=== PATIENT | female | born 1960 | race Caucasian/White ===

== ENCOUNTER 2023-06-16 08:55 | Emergency (ER) | payer OTHER, SELFPAY ==
--- NOTE | ~2023-06-16 | XR_ITS ---
EXAMINATION: XR toe 2nd LT min 2V DATE: 06/16/2023 09:31 INDICATION: Left second toe stabbing injury and pain. TECHNIQUE: 4 views of left second toe were obtained. COMPARISON: None. FINDINGS: There is an oblique fracture of neck of second proximal phalanx. The distal fracture fragme nt demonstrates 2 mm dorsal displacement and 1 mm shortening. Joint spaces are normal. IMPRESSION: 1. Oblique fracture of neck of second proximal phalanx. Reviewed, dictated and finalized at location A.
--- NOTE | ~2023-06-16 | XR_ITS ---
EXAMINATION: XR knee RT min 4V DATE: 06/16/2023 09:56 INDICATION: Right knee pain. Injury. TECHNIQUE: 4 views of right knee were obtained. COMPARISON: None. FINDINGS: Bone alignment is normal. No fracture. There is mild osteoarthritis of medial and patellofe moral compartments. No knee joint effusion. IMPRESSION: 1. Mild right knee osteoarthritis. Reviewed, dictated and finalized at location A.
[2023-06-16 09:06] VITALS: BP 130/59; PULSE 73; RESP 18; TEMP 36.3; O2SAT 100
--- NOTE | 2023-06-16 09:35 | ED.LOWEXIN ---
HPI - Extremity Injury (Lower) General Chief Complaint: Extremity Injury, Lower Stated Complaint: Toe Injury Time Seen by Provider: 06/16/23 09:15 Source: patient Mode of arrival: ambulatory Limitations: no limitations History of Present Illness HPI Narrative: 62 yo F presents with c/o pain to L second toe. Reports that she hit toe on treadmill. Arrived with toe aura taped. Also reports pain to R knee for 2 wks. Tripped and twisted R knee when hiking. Pain to medial aspect. Pain worse when bearing weight. has not seen PCP for injury. All systems reviewed and negative except as noted above. Related Data Home Medications Medication Instructions Recorded Confirmed No Home Medications 06/16/23 06/16/23 Allergies Allergy/AdvReac Type Severity Reaction Status Date / Time ciprofloxacin [From Cipro] Allergy Intermediate Other Verified 06/16/23 09:33 nitrofurantoin Allergy Intermediate Other Verified 06/16/23 09:34 [From Macrobid] Review of Systems Review of Systems: CONSTITUTIONAL: Denies fever, chills, or sweats. EYES: Denies visual changes, redness, or discharge. ENT: Denies rhinorrhea, congestion, sore throat, or otalgia. CARDIOVASCULAR: Denies chest pain, palpitations, or edema. RESPIRATORY: Denies cough or dyspnea. GASTROINTESTINAL: Denies abdominal pain, nausea, vomiting, or diarrhea. GENITOURINARY: Denies dysuria or hematuria. SKIN: Denies rash or itching. MUSCULOSKELETAL: Denies back pain or myalgia. Reports pain to R knee, L second toe. NEUROLOGIC: Denies headache, numbness, or weakness. PSYCHIATRIC: Denies anxiety or depression. All other systems reviewed are negative, except as documented in HPI. PMFSH Comments At time of signature, agree with nursing past medical, surgical, social and family history. There is no relevant family history pertinent to the presenting complaint. Exam Narrative: GENERAL: This is a well-nourished, well-developed patient, in no apparent distress. HEAD: normocephalic, atraumatic. EYES: PERRL. Sclera clear/white. Vision is grossly intact. EARS: External ears normal NOSE: External nose normal NECK: Neck supple, non-tender without lymphadenopathy, masses or thyromegaly. CARDIOVASCULAR: Regular rate and rhythm without murmurs, gallops, or rubs. RESPIRATORY: Clear to auscultation. Breath sounds equal bilaterally. No wheezes, rales, or rhonchi. SKIN: warm, Dry, intact with no suspicious lesions or rash, good texture and turgor. NEURO: awake, alert, and oriented to person, place and time. There were no obvious focal neurologic abnormalities. EXTREMITIES: swelling and bruising to L second toe, no deformity. tenderness to proximal aspect on palpation. tenderness to R knee medial aspect. ROM intact. negative anterior/posterior drawer testing. Course Course Level of Care: Express Care Visit Vital Signs Vital signs: Vital Signs Temperature 36.3 C L 06/16/23 09:06 Pulse Rate 73 06/16/23 09:06 Respiratory Rate 18 06/16/23 09:06 Blood Pressure 130/59 L 06/16/23 09:06 Pulse Oximetry 100 06/16/23 09:06 Oxygen Delivery Room Air 06/16/23 09:06 Temperature 36.3 C L 06/16/23 09:06 Pulse Rate 73 06/16/23 09:06 Respiratory Rate 18 06/16/23 09:06 Blood Pressure 130/59 L 06/16/23 09:06 Pulse Oximetry 100 06/16/23 09:06 Oxygen Delivery Room Air 06/16/23 09:06 Reviewed MDM - Extremity Injury (Lower) MDM Narrative Medical decision making narrative: Patient is aware of diagnosis, understands and agrees to treatment plan. Anticipatory guidance given. Patient agrees to follow-up as directed and is aware of reasons to seek care at the emergency department. Portions of this record may have been created with voice recognition software discussed xray results with pt. R knee mild osteoarthritis. recommend pt treat as sprain. continue wearing brace from home. RICE. See PCP if not improving. pt referred to orthopedics for further evaluati
== END 2023-06-16 10:15 | disposition home or self-care (01) ==
PROVIDERS: Emergency Provider Nurse Practitioner Family; PCP Family Medicine
DX: S92.512A Displaced fracture of proximal phalanx of left lesser toe(s), initial encounter for closed fracture (principal); W22.8XXA Striking against or struck by other objects, initial encounter; S83.91XA Sprain of unspecified site of right knee, initial encounter; W18.40XA Slipping, tripping and stumbling without falling, unspecified, initial encounter; Y93.01 Activity, walking, marching and hiking
CPT/HCPCS: 73564; 73660; 99214; G0463

== ENCOUNTER 2024-05-12 13:17 | Outpatient (CLI) | payer OTHER, SELFPAY ==
--- NOTE | ~2024-05-12 | MM_ITS ---
EXAMINATION: MM screening angelo BI w rony HISTORY: Screening mammogram TECHNIQUE: Craniocaudal and mediolateral oblique 3-D tomosynthesis images were obtained and synthetic 2-D images were generated. CAD analysis was submitted and interpreted. COMPARISON: No prior mammogram is available for comparison at this institution. BREAST PARENCHYMAL COMPOSITION:Dense: The breasts are heterogeneously dense, which may obscure small masses. FINDINGS: No suspicious mass, calcification, or architectural distortion are identified in either so ast to suggest malignancy. There has been no suspicious interval change. IMPRESSION: No mammographic evidence of malignancy. Recommend routine screening mammography in one year. BI-RADS Category 1: Negative Reviewed, dictated and finalized at location .
== END 2024-05-12 13:18 | disposition home or self-care (01) ==
LOC: ANHIMG 13:21
PROVIDERS: PCP Family Medicine; Visit Provider Obstetrics & Gynecology
DX: Z12.31 Encounter for screening mammogram for malignant neoplasm of breast (principal)
CPT/HCPCS: 77063; 77067